=== PATIENT | female | born 1995 | race Caucasian/White ===

== ENCOUNTER → 2022-08-23 | Outpatient (CLI) | payer OTHER ==
[~2022-08-23] MED LIST: ACET325T38 PO; ACHD5005 PO; AMLO-251 PO; CEPH-507 PO; CLN.1T PO; DOCU100C37 PO; HYDR-3729 PO; IBUP-1773 PO; LABE200T10 PO; LORA1TAB59 PO; METH0.2T42 PO; METH0.2T47 PO; ONDA4TAB8 PO; PREN-142 PO; clindamycin PO
--- NOTE | 2022-08-23 23:28 | Diagnostic Imaging Report ---
INDICATION: Z33.1, anatomic survey. TECHNIQUE: Multiple real-time grayscale images were obtained over the gravid uterus. COMPARISON: None. FINDINGS: A single live intrauterine gestation is identified in a transverse presentation with head to maternal left. The placenta is anteriorly located without evidence of placenta previa. Amniotic fluid is subjectively within normal limits. The cervix appears closed. cardiac motion is documented at 155 bpm. biometrics are symmetric. They are consistent with an estimated gestational age of 20 weeks and 4 days. Findings consistent with clinical dating. Evaluation of anatomy is significantly limited secondary to lie and patient body habitus. Intracranial contents are grossly unremarkable. The kidneys and four-chamber heart and spine are not well visualized. A three-vessel cord is present. The urinary bladder is not well seen. Biometrical measurements are as follows: Biparietal 4.64 cm, age 20 weeks 1 days. Head circumference 17.77 cm, age 20 weeks 2 days. Abdominal circumference 16.17 cm, age 21 weeks 2 days. Femur length 3.33 cm, age 20 weeks 3 days. Sonographic estimate age: 20 weeks 4 days. Sonographic estimated date of delivery: 01/06/2023. Estimated Weight: 377 gm (+/- 55 gm). LMP percentile: 49%. heart rate: 155 beats per minute. number: 1 of 1. IMPRESSION: Single live intrauterine gestation in a transverse presentation with an estimated gestational age of 20 weeks and 4 days. Therefore, there is an estimated due date based upon this examination of January 06, 2023. Findings are consistent with clinical dating. Limited evaluation of anatomy, as described above. In particular, the four-chamber heart, kidneys, urinary bladder and spine are not well visualized. Dictated by: Dictated on workstation # [id number]
== END ==
LOC: RAD 14:01
PROVIDERS: ATTEND Obstetrics & Gynecology
DX: Z34.92 Encounter for supervision of normal pregnancy, unspecified, second trimester (principal); Z3A.20 20 weeks gestation of pregnancy
CPT/HCPCS: 76805

== ENCOUNTER 2022-09-21 11:53 | Outpatient (CLI) | payer OTHER ==
[~2022-09-21] VITALS: Ht 175.3 cm; Wt 107.4 kg
[2022-09-21 12:20] VITALS: BP 132/66
[2022-09-21 12:50] VITALS: BP 125/71
[2022-09-21 13:20] VITALS: BP 129/82
[2022-09-21 14:00] LABS: BILIRUBIN,URINE NEGATIVE (NEGATIVE); CLARITY,URINE CLEAR; COLOR,URINE YELLOW; GLUCOSE, URINE (UA) NEGATIVE (NEGATIVE); KETONES,URINE NEGATIVE (NEGATIVE); LEUKOCYTE ESTERASE ,URINE NEGATIVE (NEGATIVE); NITRITE,URINE NEGATIVE (NEGATIVE); PROTEIN,URINE NEGATIVE (NEGATIVE)
[2022-09-21 14:07] LABS: BACTERIA,URINE NEGATIVE /HPF; SQUAMOUS EPITHELIAL CELL,UR 0-2 /HPF; WBC,URINE RARE /HPF
[2022-09-21 14:20] VITALS: BP 112/64
[2022-09-21 14:50] VITALS: BP 120/71
--- NOTE | 2022-09-21 14:58 | OB Triage Report ---
Standard Progress Note Progress Notes/Assess & Plan Date Seen by a Provider: Sep 21, 2022 Time Seen by a Provider: 14:55 Expected Date of Delivery: Jan 07, 2023 Gestational Age in Weeks: 24 Gestational Age in Days: 6 LMP/NELLY Comment: IUP @ 24w6d Progress/Assessment & Plan This 26yo presents to L&D @ 24w6d with c/o decreased movement. She states that she has not felt baby move all afternoon FHT 155 with 10x10 accelerations TOCOs none Labs reviewed--nml Will dc to home kick counts Keep next appt. ERMELINDA HAMMONDS DO Sep 21, 2022 14:58
== END 2022-09-21 15:13 | disposition home or self-care (01) ==
LOC: LDRP 11:53 → WSo 11:53
PROVIDERS: ATTEND Obstetrics & Gynecology
DX: O36.8190 Decreased fetal movements, unspecified trimester, not applicable or unspecified (principal); Z3A.00 Weeks of gestation of pregnancy not specified
CPT/HCPCS: 81000; 87088

== ENCOUNTER 2022-11-30 22:45 | Outpatient (CLI) | payer OTHER ==
[~2022-11-30] VITALS: Ht 172.7 cm; Wt 114.6 kg
[2022-11-30 23:00] VITALS: BP 127/79
[2022-11-30 23:12] LABS: BACTERIA,URINE TRACE /HPF; BILIRUBIN,URINE NEGATIVE (NEGATIVE); CLARITY,URINE CLEAR; COLOR,URINE YELLOW; GLUCOSE, URINE (UA) NEGATIVE (NEGATIVE); KETONES,URINE NEGATIVE (NEGATIVE); LEUKOCYTE ESTERASE ,URINE TRACE (NEGATIVE); NITRITE,URINE NEGATIVE (NEGATIVE); PROTEIN,URINE NEGATIVE (NEGATIVE); WBC,URINE 0-2 /HPF
--- NOTE | 2022-12-01 07:50 | Physician Query-Final Dx ---
FEMI,12/01/22 0750: Clinic Account Progress/Dx Physician Query: Please give diagnosis Please include # weeks gestation Date of Service Nov 30, 2022 at 22:45 JOE PORTER DO 12/01/22 1239: Clinic Account Progress/Dx DIAGNOSIS: Diagnosis 30 week IUP Cramping Low abdominal pains FEMI,MarDec 01, 2022 07:50 JOE PORTER DO Dec 01, 2022 12:39
== END 2022-11-30 23:45 ==
LOC: WSo 22:45 → LDRP 22:45 → WSo 23:45
PROVIDERS: ATTEND Obstetrics & Gynecology
DX: O26.893 Other specified pregnancy related conditions, third trimester (principal); R10.9 Unspecified abdominal pain; Z3A.34 34 weeks gestation of pregnancy
CPT/HCPCS: 81000

== ENCOUNTER 2022-12-21 05:33 | Outpatient (CLI) | payer OTHER ==
[~2022-12-21] VITALS: Ht 172.7 cm; Wt 115.7 kg
[2022-12-21] MEDS ORDERED: OMEP20TA56 PO (10:15)
[2022-12-21] MEDS ORDERED: LAMO200T5 PO (10:15)
[2022-12-21] MEDS ORDERED: LORA10CA PO (10:15)
[2022-12-21] MEDS ORDERED: SIME180C65 PO (10:30)
== END 2022-12-21 10:51 | disposition home or self-care (01) ==
LOC: PREOP 05:33
PROVIDERS: ATTEND Obstetrics & Gynecology
DX: Z01.818 Encounter for other preprocedural examination (principal)

== ENCOUNTER 2022-12-29 05:36 | Inpatient (IN) | payer OTHER ==
[~2022-12-29] VITALS: Ht 172.7 cm; Wt 114.6 kg
[2022-12-29] VITALS (8 sets, daily range): BP systolic 97–142; BP diastolic 65–93
[~2022-12-29 05:36] MED LIST changes: +LAMO200T5 PO; +LORA10CA PO; +OMEP20TA56 PO; +SIME180C65 PO
--- OUTSIDE RECORDS SUMMARY | 2022-12-29 05:39 | XMS REPORT ---
Author Author [facility] ter of [facility] ter of 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 Name Role Phone CASPER ELLIS Unavailable PROBLEMS Type Condition ICD9-CM Code [id number] Code Onset Dates Condition Status W/U Status Risk SNOMED Code Notes Problem Missed period N92.6 confirmed 609905 00 Problem Borderline personality disorder F60.3 confirmed 02645552 Problem Generalized anxiety disorder F41.1 confirmed 58717150 Problem Perennial allergic rhinitis, unspecified allergic rhinitis trigger J30.89 confirmed 145665106 Problem Bipolar II disorder F31.81 confirmed 43587613 Problem Anxiety F41.9 confirmed 96472702 Problem Personality disorder F60.9 confirmed 79210280 ALLERGIES Allergen (clinical drug ingredient) Drug/Non Drug Allergy documented on EMR Reaction Allergy Type Onset Date Status Levaquin dizziness/vertig o Drug Allergy Active ENCOUNTERS from 1993 to 2022-07-05 Encounter Location Date Provider Diagnosis [facility] [address] [facility] [id number] [address] July, CASPER ELLIS Encounter for immunization Z23 IMMUNIZATIONS Vaccine Route Administration Date Status PRIVATE FLU 22-23 (FLULAVAL) AGE 6MO AND UP IM Intramuscular Dec 09, 2021 Administered 2nd Dose HRSA MODERNA, COVID -19, 0.5mL IM Intramuscular July 26, 2020 Administered 1st Dose HRSA MODERNA, COVID -19, 0.5mL IM Intramuscular June 17, 2020 Administered PRIVATE MENINGOCOCCAL (MENACTRA) Unknown June Administered PRIVATE TDAP (ADACEL) Unknown June 21, 2009 Admi nistered SOCIAL HISTORY Sex Assigned At : Social History Observation Description Sex Assigned At Unknown Alcohol Screen (Audit-C) Question Answer Notes Did you have a drink containing alcohol in the p ast year? No Points 0 Interpretation Negative REASON FOR REFERRAL No Information MEDICATIONS Medication SIG (Take, Route, Frequency, Duration) Notes Start Date End Date Status Singulair 10 MG 1 tablet Orally Once a day for 30 day(s) Active Wellbutrin XL 150 MG 1 tablet in the mor gama Orally Once a day for 30 days Active Wellbutrin XL 150 MG 1 tablet in the mor gama Orally Once a day for 30 days Active lamoTRIgine 200 MG Take 1 tablet by robe th once daily for 30 days Active hydrOXYzine Pamoate 25 MG 1 capsule Oral ly 2 times a day for 30 days PRN Active REASON FOR VISIT COVID-19 Vaccine Dose 2--vandana kurtz MEDICAL (GENERAL) HISTORY Type Description Date Medical History Perennial allergic r hinitis, unspecified allergic rhinitis trigger Medical History anxiety Medical History PCOS Medical History IBS Medical History manic episodes Medical History fibromyalgia Surgical History tonsillectomy Surgical History section Surgical History dilatation and curettage x2 Hospitalization History childbirth MENTAL STATUS No Information ASSESSMENTS Encounter Date Diagnosis Assessment Notes Treatment Notes Treatment Clinical Notes July, Encounter for immunization (ICD-10 - Z23) PLAN OF TREATMENT Medication Medication Name Sig Start Date Stop Date Wellbutrin XL 150 MG 1 tablet in the mor gama Orally Once a day for 30 days lamoTRIgine 200 MG Take 1 tablet by robe once daily for 30 days Next Appt Details Provider Name:ENRIQUE Ernst, 2022-08-11 01:00:00 PM, [address] [facility], [id number], [place], [address], Insurance Providers Payer Name Payer Address Payer Phone Insured Name Patient Relationship to Insured Coverage Start Date Coverage End Date Subscriber Number Group Number [facility] [place] [address] [address] [facility] [id number] [phone] Nickolas N[place] A Self - patient is the insured [id number]
--- OUTSIDE RECORDS SUMMARY | 2022-12-29 05:39 | XMS REPORT ---
Author Author [facility] ter of [facility] ter of [facility] Address Unknown Phone Unavailable Care Team Providers Care Turner In Name Role Phone ENRIQUE QUIÑONES Unavailable PROBLEMS Type Condition ICD9-CM Code [id number] Code Onset Dates Condition Status W/U Status Risk SNOMED Code Notes Problem Missed period N92.6 confirmed 079006 00 Problem Borderline personality disorder F60.3 confirmed 14227319 Problem Generalized anxiety disorder F41.1 confirmed 55169814 Problem Perennial allergic rhinitis, unspecified allergic rhinitis trigger J30.89 confirmed 783989668 Problem Bipolar II disorder F31.81 confirmed 74660471 Problem Anxiety F41.9 confirmed 93393770 Problem Personality disorder F60.9 confirmed 63558566 ALLERGIES Allergen (clinical drug ingredient) Drug/Non Drug Allergy documented on EMR Reaction Allergy Type Onset Date Status Levaquin dizziness/vertig o Drug Allergy Active ENCOUNTERS from 1993 to 2022-08-04 Encounter Location Date Provider Diagnosis [facility] [address] [facility] [id number], [place] [address] Jun, ENRIQUE QUIÑONES Bipolar II disorder F31.81 ; Anxiety F41.9 and Personality disorder F60.9 IMMUNIZATIONS Vaccine Route Administration Date Status PRIVATE [...] Interpretation Negative REASON FOR REFERRAL No Information VITAL SIGNS Height 68 in Jun, Weight 243.2 lbs Jun, Weight-kg 110.31 kg Jun, Temperature 97.9 degrees Fahrenheit Jun, Heart Rate 84 bpm Jun, Respiratory Rate 20 bpm Jun, BMI 36.97 kg/m2 Jun, Blood pressure systolic 122 mmHg Jun, Blood pressure diastolic 84 mmHg Jun, MEDICATIONS Medication SIG (Take, Route, Frequency, Duration) [...] by robe once daily for 30 days Active hydrOXYzine Pamoate 25 MG 1 capsule Oral ly 2 times a day for 30 days PRN Active REASON FOR VISIT Psychiatric f/u/ im waiting- [facility] MEDICAL (GENERAL) HISTORY Type Description Date Medical History Perennial allergic r hinitis, unspecified allergic rhinitis trigger Medical History anxiety Medical History PCOS Medical History IBS Medical History manic episodes Medical History fibromyalgia Surgical History tonsillectomy Surgical History section Surgical History dilatation and curettage x2 Hospitalization History childbirth MENTAL STATUS No Information ASSESSMENTS Encounter Date Diagnosis Assessment Notes Treatment Notes Treatment Clinical Notes Jun, Bipolar II disorder (ICD-10 - F31.81) Jun, Anxiety (ICD-10 - F41.9) Jun, Personality disorder (ICD-10 - F60.9) Jun, Other - +Patient is not homicidal, suicidal, nor psychotic to the point of inability to care for self. Hospitalization is not warranted nor requested by the patient at this time. Discussed office phone call procedure. Reviewed available Emergency Services. Encouraged patient to contact office with any concerns. +Patient was educated regarding the risks, benefits, and alternatives to medications including no treatment at all. Patient has given consent to pharmacological intervention. We discussed the importance of taking medication as prescribed. Discussed expected onset of action, but emphasized that effect varies depending on individual. PLAN OF TREATMENT Medication Medication Name Sig Start Date Stop Date Wellbutrin XL 150 MG 1 tablet in the mor gama Orally Once a day for 30 days lamoTRIgine 200 MG Take 1 tablet by robe th once daily for 30 days Next Appt Details 4 Weeks Reason: Provider Name:ENRIQUE Ernst, 2022-08-18 01:00:00 PM, [address] [facility], [id number], [place], [address], Insurance Providers Payer Name Payer Address Payer Phone Insured Name Patient Relationship to Insured Coverage Start Date Coverage End Date Subscriber Number Group Number [facility] [place] [address] [address] [facility] [address] Nickolas Nj A Self - patient is the insured [id number]
--- OUTSIDE RECORDS SUMMARY | 2022-12-29 05:39 | XMS REPORT ---
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 Name Role Phone ENRIQUE QUIÑONES Unavailable PROBLEMS Type Condition ICD9-CM Code FIL43-WU Code Onset Dates Condition Status W/U Status Risk SNOMED Code Notes Problem Missed period N92.6 confirmed 229386 00 Problem Borderline personality disorder F60.3 confirmed 31326049 Problem Generalized anxiety disorder F41.1 confirmed 86398363 Problem Perennial allergic rhinitis, unspecified allergic rhinitis trigger J30.89 confirmed 815465054 Problem Bipolar II disorder F31.81 confirmed 26861459 Problem Anxiety F41.9 confirmed 36138831 Problem Personality disorder F60.9 confirmed 77182120 ALLERGIES Allergen (clinical drug ingredient) Drug/Non Drug Allergy documented on EMR Reaction Allergy Type Onset Date Status Levaquin dizziness/vertig o Drug Allergy Active ENCOUNTERS from 1993 to 2022-08-04 Encounter Location Date Provider Diagnosis [facility] [address] [facility] [id number], [place] [address] Aug, ENRIQUE QUIÑONES Bipolar II disorder F31.81 ; Personality disorder F60.9 and Generalized anxiety disorder F41.1 IMMUNIZATIONS Vaccine Route Administration Date Status PRIVATE [...] No Information VITAL SIGNS Height 68 in Aug, Weight 232.9 lbs Aug, Weight-kg 105.64 kg Aug, Temperature 97.6 degrees Fahrenheit Aug, Heart Rate 81 bpm Aug, Respiratory Rate 16 bpm Aug, Oximetry 99 % Aug, BMI 35.41 kg/m2 Aug, Blood pressure systolic 122 mmHg Aug, Blood pressure diastolic 76 mmHg Aug, MEDICATIONS Medication SIG (Take, Route, Frequency, Duration) [...] 30 days PRN Active REASON FOR VISIT f/u-DERECK [facility]a MEDICAL (GENERAL) HISTORY Type Description Date Medical History Perennial allergic r hinitis, unspecified allergic rhinitis trigger Medical History anxiety Medical History PCOS Medical History IBS Medical History manic episodes Medical History fibromyalgia Surgical History tonsillectomy Surgical History section Surgical History dilatation and curettage x2 Hospitalization History childbirth MENTAL STATUS No Information ASSESSMENTS Encounter Date Diagnosis Assessment Notes Treatment Notes Treatment Clinical Notes Aug, Bipolar II disorder (ICD-10 - F31.81) Aug, Personality disorder (ICD-10 - F60.9) Aug, Generalized anxiety disorder (ICD-10 - F41.1) Aug, Other - +Patient is not homicidal, suicidal, [...] Name:ENRIQUE Ernst, 2022-08-18 01:00:00 PM, [address] [facility], [id number], [place], [address], Insurance Providers Payer Name Payer Address Payer Phone Insured Name Patient Relationship to Insured Coverage Start Date Coverage End Date Subscriber Number Group Number [facility] INS [place] [address] [address] [facility] [id number] [phone] Nickolas Nj A Self - patient is the insured [id number]
--- OUTSIDE RECORDS SUMMARY | 2022-12-29 05:39 | XMS REPORT ---
Author Author [facility] ter of [facility] ter of [facility] Address Unknown Phone Unavailable Care Team Providers Care Spear Fisher Name Role Phone ENRIQUE QUIÑONES Unavailable PROBLEMS Type Condition ICD9-CM Code PDH90-LS Code Onset Dates Condition Status W/U Status Risk SNOMED Code Notes Problem Missed period N92.6 confirmed 342995 00 Problem Borderline personality disorder F60.3 confirmed 40838263 Problem Generalized anxiety disorder F41.1 confirmed 71475325 Problem Perennial allergic rhinitis, unspecified allergic rhinitis trigger J30.89 confirmed 190984775 Problem Bipolar II disorder F31.81 confirmed 07411021 Problem Anxiety F41.9 confirmed 33466410 Problem Personality disorder F60.9 confirmed 57190649 ALLERGIES Allergen (clinical drug ingredient) Drug/Non Drug Allergy documented on EMR Reaction Allergy Type Onset Date Status Levaquin dizziness/vertig o Drug Allergy Active ENCOUNTERS from 1993 to 2022-09-25 Encounter Location Date Provider Diagnosis [facility] [address] [facility] [id number], [place] [address] Oct, ENRIQUE QUIÑONES IMMUNIZATIONS Vaccine Route Administration Date Status PRIVATE TDAP (ADACEL) Unknown June 21, 2009 Admi nistered PRIVATE MENINGOCOCCAL (MENACTRA) Unknown June Administered 1st Dose HRSA MODERNA, COVID -19, 0.5mL IM Intramuscular June 17, 2020 Administered PRIVATE FLU 22-23 (FLULAVAL) AGE 6MO AND UP IM Intramuscular Dec 09, 2021 Administered 2nd Dose HRSA MODERNA, COVID -19, 0.5mL IM Intramuscular July 26, 2020 Administered SOCIAL HISTORY Sex Assigned At : Social History Observation Description Sex Assigned At Unknown Alcohol Screen (Audit-C) Question Answer Notes Did you have a drink containing alcohol in the p ast year? No Points 0 Interpretation Negative REASON FOR REFERRAL No Information MEDICATIONS Medication SIG (Take, Route, Fr equency, Duration) Notes Start Date End Date Status 28-0.8 MG 1 tablet Orally Once a day Active LaMICtal 200 MG 1 tablet Orally Once a day for 30 days Active Omeprazole 10 MG 1 capsule 30 minutes before morning meal Orally Once a day A ctive Claritin 10 MG 1 tablet Orally Once a day Active lamoTRIgine 200 MG Take 1 tablet by robe th once daily Orally Once a day for 30 days Ac tive REASON FOR VISIT Requests return call MEDICAL (GENERAL) HISTORY Type Description Date Medical History Perennial allergic r hinitis, unspecified allergic rhinitis trigger Medical History anxiety Medical History PCOS Medical History IBS Medical History manic episodes Medical History fibromyalgia Surgical History tonsillectomy Surgical History section Surgical History dilatation and curettage x2 Hospitalization History childbirth MENTAL STATUS No Information PLAN OF TREATMENT Medication Medication Name Sig Start Date Stop Date LaMICtal 200 MG 1 tablet Orally Once a day for 30 days Next Appt Details Provider Name:ENRIQUE Ernst, 2022-11-17 11:00:00 AM, [address] [facility], [id number], [place], [address], Insurance Providers Payer Name Payer Address Payer Phone Insured Name Patient Relationship to Insured Coverage Start Date Coverage End Date Subscriber Number Group Number [facility] [place] [address] [address] [facility] [address] Nickolas Nj A Spouse - patient is the spouse of the insured [id number]
--- OUTSIDE RECORDS SUMMARY | 2022-12-29 05:39 | XMS REPORT ---
Author Author [facility] ter of [facility] ter of [facility] Address Unknown Phone Unavailable Care Team Providers Care Meal Miller Name Role Phone DALLAS ALBERT Unavailable PROBLEMS Type Condition ICD9-CM Code CZN20-UI Code Onset Dates Condition Status W/U Status Risk SNOMED Code Notes Problem Missed period N92.6 confirmed 332021 00 Problem Borderline personality disorder F60.3 confirmed 69337860 Problem Generalized anxiety disorder F41.1 confirmed 10139427 Problem Perennial allergic rhinitis, unspecified allergic rhinitis trigger J30.89 confirmed 049445107 Problem Bipolar II disorder F31.81 confirmed 39192261 Problem Anxiety F41.9 confirmed 09440846 Problem Personality disorder F60.9 confirmed 42269344 ALLERGIES Allergen (clinical drug ingredient) Drug/Non Drug Allergy documented on EMR Reaction Allergy Type Onset Date Status Levaquin dizziness/vertig o Drug Allergy Active ENCOUNTERS from 1993 to 2022-08-02 Encounter Location Date Provider Diagnosis [facility] [address] [facility] [id number], [place] [address] Aug, DALLAS ALBERT Bipolar II disorder F31.81 ; Personality disorder [...] 30 days PRN Active REASON FOR VISIT f/u MEDICAL (GENERAL) HISTORY Type Description Date Medical History Perennial allergic r hinitis, unspecified allergic rhinitis trigger Medical History anxiety Medical History PCOS Medical History IBS Medical History manic episodes Medical History fibromyalgia Surgical History tonsillectomy Surgical History section Surgical History dilatation and curettage x2 Hospitalization History childbirth MENTAL STATUS No Information ASSESSMENTS Encounter Date Diagnosis Assessment Notes Treatment Notes Treatment Clinical Notes Aug, Personality disorder (ICD-10 - F60.9) Aug, Bipolar II disorder (ICD-10 - F31.81) Aug, Generalized anxiety disorder (ICD-10 - F41.1) PLAN OF TREATMENT Medication Medication Name Sig Start Date Stop Date Wellbutrin XL 150 MG 1 tablet in the mor gama Orally Once a day for 30 days lamoTRIgine 200 MG Take 1 tablet by robe th once daily for 30 days Next Appt Details Next available Reason: Provider Name:ENRIQUE Ernst, 2022-08-18 01:00:00 PM, [address] [facility], [id number], [place], [address], Insurance Providers Payer Name Payer Address Payer Phone Insured Name Patient Relationship to Insured Coverage Start Date Coverage End Date Subscriber Number Group Number [facility] [place] [address] [address] [facility] [id number] [phone] Nickolas Nj Self - patient is the insured [phone]
--- OUTSIDE RECORDS SUMMARY | 2022-12-29 05:39 | XMS REPORT ---
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 Name Role Phone ENRIQUE QUIÑONES Unavailable PROBLEMS Type Condition ICD9-CM Code EQJ70-OP Code Onset Dates Condition Status W/U Status Risk SNOMED Code Notes Problem Missed period N92.6 confirmed 981015 00 Problem Borderline personality disorder F60.3 confirmed 95358924 Problem Generalized anxiety disorder F41.1 confirmed 37782685 Problem Perennial allergic rhinitis, unspecified allergic rhinitis trigger J30.89 confirmed 519276716 Problem Bipolar II disorder F31.81 confirmed 19555075 Problem Anxiety F41.9 confirmed 72205897 Problem Personality disorder F60.9 confirmed 59145907 ALLERGIES Allergen (clinical drug ingredient) Drug/Non Drug Allergy documented on EMR Reaction Allergy Type Onset Date Status Levaquin dizziness/vertig o Drug Allergy Active ENCOUNTERS from 1993 to 2022-08-08 Encounter Location Date Provider Diagnosis [facility] [address] [facility] [id number] [address] Jun, ENRIQUE QUIÑONES Bipolar II disorder F31.81 [...] VITAL SIGNS Height 68 in Jun, Weight 232.8 lbs Jun, Weight-kg 105.6 kg Jun, Temperature 97.9 degrees Fahrenheit Jun, Heart Rate 78 bpm Jun, Respiratory Rate 18 bpm Jun, Oximetry 98 % Jun, BMI 35.39 kg/m2 Jun, Blood pressure systolic 124 mmHg Jun, Blood pressure diastolic 76 mmHg Jun, MEDICATIONS Medication SIG (Take, Route, [...] days PRN Active REASON FOR VISIT Psychiatric f/u-DERECK Shea MEDICAL (GENERAL) HISTORY Type Description [...] Bipolar II disorder (ICD-10 - F31.81) Jun, Personality disorder (ICD-10 - F60.9) Jun, Generalized anxiety disorder (ICD-10 - F41.1) Jun, Other - +Patient is not homicidal, [...] Name:ENRIQUE Ernst, 2022-08-18 01:00:00 PM, [address] [facility], [id number], [place], [address], Insurance Providers Payer Name Payer Address Payer Phone Insured Name Patient Relationship to Insured Coverage Start Date Coverage End Date Subscriber Number Group Number [facility] [place] [address] [address] [facility] [id number] [phone] Nickolas Nj A Self - patient is the insured [id number]
--- OUTSIDE RECORDS SUMMARY | 2022-12-29 05:39 | XMS REPORT ---
Author Author [facility] ter of [facility] ter of [facility] Address Unknown Phone Unavailable Care Team Providers Care Animal Sitter Name Role Phone CASPER ELLIS Unavailable PROBLEMS Type Condition ICD9-CM Code [id number] Code Onset Dates Condition Status W/U Status Risk SNOMED Code Notes Problem Missed period N92.6 confirmed 372475 00 Problem Borderline personality disorder F60.3 confirmed 52087406 Problem Generalized anxiety disorder F41.1 confirmed 01253268 Problem Perennial allergic rhinitis, unspecified allergic rhinitis trigger J30.89 confirmed 864123817 Problem Bipolar II disorder F31.81 confirmed 02386007 Problem Anxiety F41.9 confirmed 51182382 Problem Personality disorder F60.9 confirmed 82433826 ALLERGIES Allergen (clinical drug ingredient) Drug/Non Drug Allergy documented on EMR Reaction Allergy Type Onset Date Status Levaquin dizziness/vertig o Drug Allergy Active ENCOUNTERS from 1993 to 2022-10-23 Encounter Location Date Provider Diagnosis [facility] [address] [facility] [id number] [address] Nov, CASPER ELLIS Nausea R11.0 ; Sore throat J02.9 ; Stuffy and runny nose J34.89 ; Malaise R53.81 ; Myalgia M79.10 ; Vomiting alone R11.10 and Acute nonintractable headache, unspecified headache type R51.9 IMMUNIZATIONS Vaccine Route Administration Date Status 1st Dose HRSA MODERNA, COVID -19, 0.5mL IM Intramuscular June 17, 2020 Administered PRIVATE TDAP (ADACEL) Unknown June 21, 2009 Admi nistered PRIVATE MENINGOCOCCAL (MENACTRA) Unknown June Administered 2nd Dose HRSA MODERNA, COVID -19, 0.5mL IM Intramuscular July 26, 2020 Administered PRIVATE FLU 22-23 (FLULAVAL) AGE 6MO AND UP IM Intramuscular Dec 09, 2021 Administered SOCIAL HISTORY Sex Assigned At : [...] 30 days Ac tive REASON FOR VISIT Symptomatic-Poss [facility] MEDICAL (GENERAL) HISTORY Type Description Date Medical History Perennial allergic r hinitis, unspecified allergic rhinitis trigger Medical History anxiety Medical History PCOS Medical History IBS Medical History manic episodes Medical History fibromyalgia Surgical History tonsillectomy Surgical History section Surgical History dilatation and curettage x2 Hospitalization History childbirth MENTAL STATUS No Information ASSESSMENTS Encounter Date Diagnosis Assessment Notes Treatment Notes Treatment Clinical Notes Nov, Nausea (ICD-10 - R11.0) Nov, Sore throat (ICD-10 - J02.9) Nov, Stuffy and runny nos e (ICD-10 - J34.89) Nov, Malaise (ICD-10 - R53.81) Nov, Myalgia (ICD-10 - M79.10) Nov, Vomiting alone (ICD-10 - R11.10) Nov, Acute nonintractable headache, unspecified headache type (ICD-10 - R51.9) Nov, Other Patient was instructed to self-isolate at home until further instruction from clinic staff PLAN OF TREATMENT Medication Medication Name Sig Start Date Stop Date LaMICtal 200 MG 1 tablet Orally Once a day for 30 days Next Appt Details Provider Name:ENRIQUE Ernst, 2022-11-17 11:00:00 AM, [address] [facility], [id number], [place], [address], Insurance Providers Payer Name Payer Address Payer Phone Insured Name Patient Relationship to Insured Coverage Start Date Coverage End Date Subscriber Number Group Number [facility] [address] [address] [facility] [id number] [place] Spouse - patient is the spouse of the insured [phone]
--- OUTSIDE RECORDS SUMMARY | 2022-12-29 05:39 | XMS REPORT ---
Author Author [facility] ter of [facility] ter of [facility] Address Unknown Phone Unavailable Care Team Providers Care Tanning Salon Attendant Name Role Phone ENRIQUE QUIÑONES Unavailable PROBLEMS Type Condition ICD9-CM Code [id number] Code Onset Dates Condition Status W/U Status Risk SNOMED Code Notes Problem Missed period N92.6 confirmed 083419 00 Problem Borderline personality disorder F60.3 confirmed 29462138 Problem Generalized anxiety disorder F41.1 confirmed 19631304 Problem Perennial allergic rhinitis, unspecified allergic rhinitis trigger J30.89 confirmed 293419469 Problem Bipolar II disorder F31.81 confirmed 80148625 Problem Anxiety F41.9 confirmed 23454878 Problem Personality disorder F60.9 confirmed 94438962 ALLERGIES Allergen (clinical drug ingredient) Drug/Non Drug Allergy documented on EMR Reaction Allergy Type Onset Date Status Levaquin dizziness/vertig o Drug Allergy Active ENCOUNTERS from 1993 to 2022-09-30 Encounter Location Date Provider Diagnosis [facility] [address] [facility] [id number] [address] Sep, ENRIQUE QUIÑONES IMMUNIZATIONS Vaccine Route Administration Date Status 1st Dose HRSA MODERNA, COVID -19, 0.5mL IM Intramuscular June 17, 2020 Administered 2nd Dose HRSA MODERNA, COVID -19, 0.5mL IM Intramuscular July 26, 2020 Administered PRIVATE FLU 22-23 (FLULAVAL) AGE 6MO AND UP IM Intramuscular Dec 09, 2021 Administered PRIVATE MENINGOCOCCAL (MENACTRA) Unknown June Administered [...] Name:ENRIQUE Ernst, 2022-11-17 11:00:00 AM, [address] [facility], [id number], [place], [address], Insurance Providers Payer Name Payer Address Payer Phone Insured Name Patient Relationship to Insured Coverage Start Date Coverage End Date Subscriber Number Group Number [facility] [address] [address] [facility] [address] [phone] [place] Spouse - patient is the spouse of the insured [id number]
--- OUTSIDE RECORDS SUMMARY | 2022-12-29 05:39 | XMS REPORT ---
Author Author [facility] ter of [facility] ter of [facility] Address Unknown Phone Unavailable Care Team Providers Care Director Biomedical Engineering Name Role Phone ENRIQUE QUIÑONES Unavailable PROBLEMS Type Condition ICD9-CM Code [id number] Code Onset Dates Condition Status W/U Status Risk SNOMED Code Notes Problem Missed period N92.6 confirmed 562655 00 Problem Borderline personality disorder F60.3 confirmed 82215111 Problem Generalized anxiety disorder F41.1 confirmed 29151669 Problem Perennial allergic rhinitis, unspecified allergic rhinitis trigger J30.89 confirmed 506224309 Problem Bipolar II disorder F31.81 confirmed 67841101 Problem Anxiety F41.9 confirmed 33781153 Problem Personality disorder F60.9 confirmed 92786332 ALLERGIES Allergen (clinical drug ingredient) Drug/Non Drug Allergy documented on EMR Reaction Allergy Type Onset Date Status Levaquin dizziness/vertig o Drug Allergy Active ENCOUNTERS from 1993 to 2022-08-10 Encounter Location Date Provider Diagnosis [facility] [address] [facility] [id number], [place] [address] July, ENRIQUE QUIÑONES Bipolar II disorder F31.81 ; Personality disorder F60.9 and Generalized anxiety disorder F41.1 IMMUNIZATIONS Vaccine Route Administration Date Status 1st [...] No Information VITAL SIGNS Height 68 in July, Weight 235.1 lbs July, Weight-kg 106.64 kg July, Temperature 98.8 degrees Fahrenheit July, Heart Rate 76 bpm July, Respiratory Rate 18 bpm July, BMI 35.74 kg/m2 July, Blood pressure systolic 112 mmHg July, Blood pressure diastolic 84 mmHg July, MEDICATIONS Medication SIG (Take, Route, Frequency, Duration) Notes Start Date End Date Status Wellbutrin XL 150 MG 1 tablet in the mor gama Orally Once a day for 30 days Active Wellbutrin XL 150 MG 1 tablet in the mor gama Orally Once a day for 30 days Active hydrOXYzine Pamoate 25 MG 1 capsule Oral ly 2 times a day for 30 days PRN Active Singulair 10 MG 1 tablet Orally Once a day for 30 day(s) Active lamoTRIgine 200 MG Take 1 tablet by robe th once daily Orally Once a day for 30 days Active REASON FOR VISIT Psychiatric f/u - IM WAITING ROOM [facility] MEDICAL (GENERAL) HISTORY Type Description Date Medical History Perennial allergic r hinitis, unspecified allergic rhinitis trigger Medical History anxiety Medical History PCOS Medical History IBS Medical History manic episodes Medical History fibromyalgia Surgical History tonsillectomy Surgical History section Surgical History dilatation and curettage x2 Hospitalization History childbirth MENTAL STATUS No Information ASSESSMENTS Encounter Date Diagnosis Assessment Notes Treatment Notes Treatment Clinical Notes July, Bipolar II disorder (ICD-10 - F31.81) July, Personality disorder (ICD-10 - F60.9) July, Generalized anxiety disorder (ICD-10 - F41.1) PLAN OF TREATMENT Medication Medication Name Sig Start Date Stop Date Wellbutrin XL 150 MG 1 tablet in the mor gama Orally Once a day for 30 days lamoTRIgine 200 MG Take 1 tablet by robe th once daily Orally Once a day for 30 days Next Appt Details 4 Weeks Reason: Provider Name:ENRIQUE Ernst, 2022-08-18 01:00:00 PM, [address] [facility], [id number], [place], [address], Insurance Providers Payer Name Payer Address Payer Phone Insured Name Patient Relationship to Insured Coverage Start Date Coverage End Date Subscriber Number Group Number [facility] [address] [address] [facility] [id number] [place] Self - patient is the insured [id number]
--- OUTSIDE RECORDS SUMMARY | 2022-12-29 05:39 | XMS REPORT ---
Author Author [facility] ter of [facility] ter of [facility] Address Unknown Phone Unavailable Care Team Providers Care Pediatric Assistant Name Role Phone ENRIQUE QUIÑONES Unavailable PROBLEMS Type Condition ICD9-CM Code UPU30-FF Code Onset Dates Condition Status W/U Status Risk SNOMED Code Notes Problem Missed period N92.6 confirmed 620165 00 Problem Borderline personality disorder F60.3 confirmed 77776007 Problem Generalized anxiety disorder F41.1 confirmed 26949037 Problem Perennial allergic rhinitis, unspecified allergic rhinitis trigger J30.89 confirmed 968370905 Problem Bipolar II disorder F31.81 confirmed 00065115 Problem Anxiety F41.9 confirmed 80569178 Problem Personality disorder F60.9 confirmed 11151308 ALLERGIES Allergen (clinical drug ingredient) Drug/Non Drug Allergy documented on EMR Reaction Allergy Type Onset Date Status Levaquin dizziness/vertig o Drug Allergy Active ENCOUNTERS from 1993 to 2022-07-31 Encounter Location Date Provider Diagnosis [facility] [address] [facility] [id number] [address] Aug, ENRIQUE QUIÑONES IMMUNIZATIONS Vaccine Route Administration Date [...] 30 days PRN Active REASON FOR VISIT medication MEDICAL (GENERAL) HISTORY Type Description Date Medical [...] days Next Appt Details Provider Name:ENRIQUE Ernst, 2022-08-18 01:00:00 PM, [address] [facility], [id number], [place], [address], Insurance Providers Payer Name Payer Address Payer Phone Insured Name Patient Relationship to Insured Coverage Start Date Coverage End Date Subscriber Number Group Number [facility] [address] [address] [facility] [id number] [place] Self - patient is the insured [id number]
[2022-12-29] MEDS ORDERED: LACTATED RINGERS 1,000 ML 1,000 ML IV SCH ×2 (05:45)
[2022-12-29] MEDS ORDERED: METOCLOPRAMIDE INJ 10 MG/2 ML IV ONE (05:45)
[2022-12-29] MEDS ORDERED: FAMOTIDINE INJ 20MG/2ML VIAL IV ONE (05:45)
[2022-12-29] MEDS ORDERED: ceFAZolin INJECTION 2,000 MG in NS (IVPB) 50 ML 50 ML IV ONE (05:45)
[2022-12-29] MEDS ORDERED: CITRIC ACID/SODIUM CITRATE ORAL SOLN 30 ML PO ONE (05:45)
[2022-12-29] MEDS ORDERED: ceFAZolin INJECTION 2,000 MG ONE (06:04)
[2022-12-29] MEDS ORDERED: NS (IVPB) 50 ML 50 ML ONE (06:04)
[2022-12-29 06:08] LABS: BASOPHILS % (AUTO) 0 % (0-10); EOSINOPHILS % (AUTO) 0 % (0-10); HEMATOCRIT 32 % (35-52); HEMOGLOBIN 10.1 g/dL (11.5-16.0); LYMPHOCYTES # (AUTO) 2.3 10^3/uL (1.0-4.0); LYMPHOCYTES % (AUTO) 24 % (12-44); MEAN CORPUSCULAR HEMOGLOBIN 25 pg (25-34); MEAN CORPUSCULAR HGB CONC 32 g/dL (32-36); MEAN CORPUSCULAR VOLUME 80 fL (80-99); MEAN PLATELET VOLUME 10.9 fL (9.0-12.2); MONOCYTES # (AUTO) 0.7 10^3/uL (0.0-1.0); MONOCYTES % (AUTO) 8 % (0-12); NEUTROPHILS # (AUTO) 6.7 10^3/uL (1.8-7.8); NEUTROPHILS % (AUTO) 68 % (42-75); PLATELET COUNT 209 10^3/uL (130-400); WHITE BLOOD COUNT 9.8 10^3/uL (4.3-11.0)
[2022-12-29 06:16] LABS: POTASSIUM 3.5 MMOL/L (3.6-5.0)
[2022-12-29 06:18] LABS: CALCIUM 8.8 MG/DL (8.5-10.1)
[2022-12-29 06:22] LABS: CREATININE SERUM 0.61 MG/DL (0.60-1.30)
[2022-12-29] MEDS ORDERED: fentaNYL INJECTION 100 MCG/2 ML VIAL ONE (06:59)
[2022-12-29] MEDS ORDERED: OXYTOCIN DRIP PRE-MIX 1,000 ML IV ONE (06:59)
[2022-12-29] MEDS ORDERED: BUPIVACAINE 0.5% 30 ML VIAL ONE (06:59)
--- NOTE | 2022-12-29 07:18 | History & Physical-OB ---
OB - Chief Complaint & HPI Date/Time Date of Admission: Date of Admission: Dec 29, 2022 at 05:36 Date seen by a Provider: Dec 29, 2022 Time Seen by a Provider: 07:05 Chief Complaint/History OB-Reason for Admission/Chief: Section Hx : 3 Hx Para: 1 Expected Date of Delivery: Jan 05, 2023 Gestational Age in Weeks: 39 Gestational Age in Days: 0 Indication for : desires repeat Admission Nurse Assessment Rev: Yes History of Labs O pos Antibody neg RNI RPR NR HBsAg NR HIV NR GC neg GBS neg Allergies and Home Medications Allergies Coded Allergies: No Known Drug Allergies (Unverified , 12/21/22) Patient Home Medication List Home Medication List Reviewed: Yes Lamotrigine (Lamotrigine) 200 Mg Tablet, 200 MG PO DAILY, (Reported) Entered as Reported by: Lali De La Cruz on 12/21/22 1015 Last Action: Reviewed Loratadine (Claritin) 10 Mg Capsule, 10 MG PO DAILY, (Reported) Entered as Reported by: Lali De La Cruz on 12/21/22 1015 Last Action: Reviewed Omeprazole (Omeprazole) 20 Mg Tablet.dr, 20 MG PO BID, (Reported) Entered as Reported by: Lali De La Cruz on 12/21/22 1015 Last Action: Reviewed Vit No.124/Iron/FA ( Vitamin Tablet) 1 Each Tablet, 1 EACH PO DAILY, (Reported) Entered as Reported by: JUAN R LAUREANO on 12/11/16 2353 Last Action: Reviewed Simethicone (Simethicone) 180 Mg Capsule, 180 MG PO NEEDED, (Reported) Entered as Reported by: Lali De La Cruz on 12/21/22 1030 Last Action: Reviewed OB - History Hx of Present Care: Yes Ultrasounds: Normal mid trimester US Obstetrical Complications: None Medical Complications: None Delivery History Hx Blood Disorders: No Adverse Rxn to Tranfusion: No Patient Past Medical History BMI > 30 Social History/Family History 2nd Hand Smoke Exposure: No Immunizations Influenza Vaccine Up-to-Date: Yes; Up-to-Date Hepatitis A: Yes Hepatitis B: Yes Tetanus Booster (TDap): Less than 5yrs OB - Admission Exam Physical Exam Vitals: Vital Signs 12/29/22 06:00 Temp 36.1 Pulse 98 Resp 18 Pulse Ox 98 O2 Delivery Room Air HEENT: NCAT Heart: Rhythm Normal Lungs: Clear Abdomen: Gravid Extremities: Normal Reflexes: Normal Heart Rate: 130's Accelerations: Accelerations Present Decelerations: No Decelerations Short Term Variability: Present Valve Steamer Variability: Average (6-25) Contractions on Admission: >10 Minutes Apart Intensity: Mild Labs Laboratory Tests Test 12/29/22 05:55 Range/Units White Blood Count 9.8 4.3-11.0 10^3/uL Red Blood Count 3.98 3.80-5.11 10^6/uL Hemoglobin 10.1 L 11.5-16.0 g/dL Hematocrit 32 L 35-52 % Mean Corpuscular Volume 80 80-99 fL Mean Corpuscular Hemoglobin 25 25-34 pg Mean Corpuscular Hemoglobin Concent 32 32-36 g/dL Red Cell Distribution Width 13.3 10.0-14.5 % Platelet Count 209 130-400 10^3/uL Mean Platelet Volume 10.9 9.0-12.2 fL Immature Granulocyte % (Auto) 0 % Neutrophils (%) (Auto) 68 42-75 % Lymphocytes (%) (Auto) 24 12-44 % Monocytes (%) (Auto) 8 0-12 % Eosinophils (%) (Auto) 0 0-10 % Basophils (%) (Auto) 0 0-10 % Neutrophils # (Auto) 6.7 1.8-7.8 10^3/uL Lymphocytes # (Auto) 2.3 1.0-4.0 10^3/uL Monocytes # (Auto) 0.7 0.0-1.0 10^3/uL Eosinophils # (Auto) 0.0 0.0-0.3 10^3/uL Basophils # (Auto) 0.0 0.0-0.1 10^3/uL Immature Granulocyte # (Auto) 0.0 0.0-0.1 10^3/uL Sodium Level 137 135-145 MMOL/L Potassium Level 3.5 L 3.6-5.0 MMOL/L Chloride Level 109 H 98-107 MMOL/L Carbon Dioxide Level 19 L 21-32 MMOL/L Anion Gap 9 5-14 MMOL/L Blood Urea Nitrogen 7 7-18 MG/DL Creatinine 0.61 0.60-1.30 MG/DL Estimat Glomerular Filtration Rate 124 BUN/Creatinine Ratio 11 Glucose Level 89 70-105 MG/DL Calcium Level 8.8 8.5-10.1 MG/DL OB - Assessment/Plan/Diagnosis Assessment Assessment: section Admission Dx 27 yo @ 39 weeks Previous GBS neg Admission Status: Inpatient Order (span 2 midnights) Reason for Inpatient Admission: Repeat at 39 weeks Plan Plan: Section JOE PORTER DO Dec 29, 2022 07:18
--- NOTE | 2022-12-29 07:21 | Discharge Inst-Women's Service ---
Discharge Inst-Women's Serv Depart Medication/Instructions New, Converted or Re-Newed RX: Transmitted to Pharmacy Final Diagnosis POD 2 RLTCS Problems Reviewed?: Yes Consults/Follow Up Additional Follow Up: Yes Orders/Referrals Dr. Rivas in 7-10 days and in 6 weeks Activity Activity: Activity as Tolerated Driving Instructions: No Driving for 1 Week NO SMOKING: NO SMOKING Nothing Inside Vagina: No Douching, No Motley, No Tampons Diet Discharge Diet: No Restrictions Symptoms to Report to : Bleeding Excessive, Pain Increased, Fever Over 101 Degrees F, Vaginal Bleeding Increase, Questions/Concerns For Any Problems or Questions: Contact Your Physician Skin/Wound Care Infection Signs and Symptoms: Increased Redness, Foul Odor of Wound, Increased Drainage, Skin Itchy or Has a Rash, Increased Swelling, Temperature Above 101 F Operative Area Clean and Dry: Keep Incision Clean/Dry Stitches/[place]or[place]/Dermabond: Dermabond, Care of Stitches Bathing Instructions: JOE Leary DO Dec 29, 2022 07:21
[2022-12-29] MEDS ORDERED: ACHD5005 PO (07:26)
[2022-12-29] MEDS ORDERED: IBUP-844 PO (07:26)
[2022-12-29] MEDS ORDERED: DOCU100C37 PO (07:26)
[2022-12-29] MEDS ORDERED: Tetanus/Diphtheria/Pertussis (Acell) ADULT Vaccine 0.5 ML IM SCH (07:30)
[2022-12-29] MEDS ORDERED: NALOXONE 0.4 MG/ML 1 ML VIAL IV PRN (07:30)
[2022-12-29] MEDS ORDERED: MEASLES, MUMPS, RUBELLA VACCINE (MMR) SC SCH (07:30)
[2022-12-29] MEDS ORDERED: ONDANSETRON INJECTION 4 MG/2 ML (SDV) IVP PRN (07:30)
[2022-12-29] MEDS ORDERED: ONDANSETRON INJECTION 4 MG/2 ML (SDV) ONE (07:52)
[2022-12-29] MEDS ORDERED: PHENYLEPHRINE 100 MCG/ML 10 ML (ANESTHESIA) SYR ONE (08:37)
[2022-12-29] MEDS: OXYTOCIN DRIP PRE-MIX 500 ML IV SCH ×2 (09:01→13:15)
[2022-12-29] MEDS: KETOROLAC INJ 30 MG/ML VIAL IV SCH ×3 (09:01→21:17)
[2022-12-29] MEDS: DOCUSATE SODIUM 100 MG CAPSULE PO SCH ×2 (09:04→21:17)
[2022-12-29] MEDS: HYDROcodone/ACETAMINOPHEN 5 MG/325 MG TABLET PO PRN ×3 (11:23→19:33)
[2022-12-29] MEDS ORDERED: CATHETER FLUSH 10 ML SYR IV SCH (14:00)
--- NOTE | 2022-12-29 14:38 | OPERATIVE REPORT ---
PREOPERATIVE DIAGNOSES: 1. A 27-year-old at 39 weeks' gestation. 2. Previous section. POSTOPERATIVE DIAGNOSES: 1. A 27-year-old at 39 weeks' gestation. 2. Previous section. PROCEDURE: Repeat low transverse section. SURGEON: Herbert Rivas DO ANESTHESIA: Spinal. ESTIMATED BLOOD LOSS: 500 mL URINE OUTPUT: 175 mL FLUIDS: 2100 mL lactated Ringer's solution. FINDINGS: A live female infant, weighing 7 pounds 13 ounces, Apgars of 8 and 9. Grossly normal appearing uterus, bilateral fallopian tubes and ovaries. SPECIMEN SENT: None. INDICATIONS FOR PROCEDURE: This 27-year-old female was patient who sought care in my office, it was uncomplicated with exception of need for repeat . The patient desired a repeat . Risk of that versus trial of labor after was reviewed and the patient wished to proceed with repeat . After all of her questions were answered in the preoperative area, consent was obtained, the patient was taken to the operating room. OPERATIVE REPORT IN DETAIL: Once in the operating room, spinal analgesia was found to be adequate, was placed in supine position with leftward tilt, prepped and draped in normal sterile fashion. A timeout was performed. Anesthesia was tested. I then make a Pfannenstiel skin incision through previous existing scar using knife and carried underlying fascia using Bovie cautery. The fascial incision was extended laterally using Bovie cautery. Superior aspect of fascial incision was then grasped with Liliana clamps, tented up and dissected off the underlying rectus muscles. The inferior aspect of the fascial incision was then grasped with Liliana clamps, tented up and dissected off the underlying rectus muscles. The rectus muscles were dissected down the midline, which exposed the peritoneum, which I entered bluntly and extended using blunt traction. Robert ring retractor was placed in the peritoneal incision, which offers excellent lateral sidewall retraction. I identified lower uterine segment was found to be thinned out and make a low transverse incision to the vesicouterine peritoneum and bluntly dissected off the lower uterine segment, creating a bladder flap. I then proceeded my myotomy until membranes were visualized, at which point I extended the uterine incision laterally and superiorly using bandage scissors. Amniotomy was performed in the process of doing this, clear fluid was noted. It was found in vertex presentation. With gentle fundal pressure, the 's head elevated up to the incision. There is difficulty delivering the head through the incision; therefore, I placed a Kiwi vacuum extractor on the flexion point and 500 mmHg pressure was applied using the suction handpiece and I am able to deliver the head through the incision where the vacuum was released. Anterior and posterior shoulders were delivered. was brought to the operative field where cords were clamped and cut and infant was handed off to waiting nurses in attendance. Cord blood was collected. Three-vessel cord intact placenta was delivered spontaneously thereafter. IV Pitocin was initiated to facilitate uterine traction. Uterine fundus was firm with bimanual massage. The uterus was exteriorized and cleared endometrial clots and debris. I then proceeded with closing the uterine incision using 0 Vicryl suture in a running locked fashion. Second layer of imbricating 0 Monocryl was placed. Excellent hemostasis was noted after doing this, then placed the uterus back in pelvis and copiously irrigated the pelvis using normal saline. Once the end of active bleeding noted from any of my dissection planes, I placed Interceed antiadhesive over my low transverse incision. I removed the Robert ring retractor and then proceeded with closing the peritoneum and rectus muscles in one layer using 3-0 Vicryl suture in interrupted fashion. The fascia was reapproximated using 0 Vicryl suture in a running fashion. The subcutaneous tissue was reapproximated using 3-0 plain interrupted subcutaneous stitch and skin reapproximated using 4-0 Monocryl running subcuticular. Dermabond was applied. Incision, sterile dressing with adhesive white tape. The patient tolerated the procedure well and sent to recovery area in stable condition. Lap and sponge counts were correct at the end of the procedure. Instrument counts correct as well. Two grams of Ancef were given preoperatively for infection prophylaxis. Job ID: [id number] DocumentID: [id number] Dictated Date: 12/29/2022 08:06:31 Arm Maker Date: 12/29/2022 14:35:00 Dictated By: DO JENNIFFER ESPINOZA
[2022-12-30 00:30] VITALS: BP 111/67
[2022-12-30] MEDS: HYDROcodone/ACETAMINOPHEN 5 MG/325 MG TABLET PO PRN ×4 (01:23→20:06)
[2022-12-30] MEDS: KETOROLAC INJ 30 MG/ML VIAL IV SCH (03:16)
[2022-12-30 05:41] LABS: BASOPHILS % (AUTO) 0 % (0-10); EOSINOPHILS # (AUTO) 0.1 10^3/uL (0.0-0.3); EOSINOPHILS % (AUTO) 1 % (0-10); HEMATOCRIT 33 % (35-52); HEMOGLOBIN 10.1 g/dL (11.5-16.0); LYMPHOCYTES # (AUTO) 1.5 10^3/uL (1.0-4.0); LYMPHOCYTES % (AUTO) 16 % (12-44); MEAN CORPUSCULAR HEMOGLOBIN 26 pg (25-34); MEAN CORPUSCULAR HGB CONC 31 g/dL (32-36); MEAN CORPUSCULAR VOLUME 82 fL (80-99); MEAN PLATELET VOLUME 10.9 fL (9.0-12.2); MONOCYTES # (AUTO) 0.8 10^3/uL (0.0-1.0); MONOCYTES % (AUTO) 8 % (0-12); NEUTROPHILS % (AUTO) 74 % (42-75); PLATELET COUNT 168 10^3/uL (130-400); WHITE BLOOD COUNT 9.4 10^3/uL (4.3-11.0)
[2022-12-30 06:18] VITALS: BP 108/68
[2022-12-30] MEDS: DOCUSATE SODIUM 100 MG CAPSULE PO SCH ×2 (08:16→20:04)
[2022-12-30] MEDS: IBUPROFEN 600 MG TABLET PO SCH ×3 (08:16→20:04)
[2022-12-30 08:20] VITALS: BP 117/70
--- NOTE | 2022-12-30 08:46 | Anesthesia-Regional Post-Op ---
Regional Patient Condition Mental Status: Alert, Oriented x3 Circulation: Same as Pre-Op Headache: Absent Sensation: Full Recovery Motor Block: Absent Post Op Complications Complications None Follow Up Care/Instructions Patient Instructions None needed. Anesthesia/Patient Condition Patient is doing well, no complaints, stable vital signs, no apparent adverse anesthesia problems. No complications reported per nursing. ANA BRADFORD CRNA Dec 30, 2022 08:46
--- NOTE | 2022-12-30 09:26 | Postpartum Progress Note ---
Note Note Day # 1 Subjective: Patient is without complaints. Ambulating, voiding. Tolerating a regular diet without nausea or vomiting. Normal lochia. Pain is well controlled with oral pain medications. Objective: Physical Exam: General - Alert and oriented, no apparent distress Abdomen - Soft, appropriately tender to palpation, non-distended, fundus firm at umbilicus Extremities - no edema, negative Jerman's bilaterally Assessment: POD 1 RLTCS Acute blood loss anemia Plan: Routine care. Encourage breast feeding. Encourage ambulation. Ferrous sulfate supplementation. Plan for discharge tomorrow Vitals - Labs Vital Signs - I&O Vital Signs Date Time Temp Pulse Resp B/P (MAP) Pulse Ox O2 Delivery O2 Flow Rate FiO2 12/30/22 08:20 36.6 88 18 117/70 (86) 100 Room Air 12/30/22 06:18 36.1 94 18 108/68 (81) 99 Room Air 12/30/22 00:30 36.1 89 18 111/67 (82) 99 Room Air 12/29/22 19:33 36.3 90 18 142/65 (90) 98 Room Air 12/29/22 16:45 36.6 85 18 124/77 (93) Room Air 12/29/22 12:00 36.6 93 18 109/70 (83) 100 Room Air I & O 12/30/22 07:00 Intake Total 2050 ml Output Total 2175 ml Balance -125 ml Labs Laboratory Tests 12/30/22 05:21: White Blood Count 9.4, Red Blood Count 3.96, Hemoglobin 10.1L, Hematocrit 33L, Mean Corpuscular Volume 82, Mean Corpuscular Hemoglobin 26, Mean Corpuscular Hem oglobin Concent 31L, Red Cell Distribution Width 13.5, Platelet Count 168, Mean Platelet Volume 10.9, Immature Granulocyte % (Auto) 0, Neutrophils (%) (Auto) 74, Lymphocytes (%) (Auto) 16, Monocytes (%) (Auto) 8, Eosinophils (%) (Auto) 1, Basophils (%) (Auto) 0, Neutrophils # (Auto) 7.0, Lymphocytes # (Auto) 1.5, Monocytes # (Auto) 0.8, Eosinophils # (Auto) 0.1, Basophils # (Auto) 0.0, Immature Granulocyte # (Auto) 0.0 JOE PORTER 21, 2023 09:26
[2022-12-30 12:30] VITALS: BP 123/74
[2022-12-30] MEDS ORDERED: diphenhydrAMINE 25 MG TABLET PO ONE (14:30)
[2022-12-30 18:49] VITALS: BP 129/71
[2022-12-30 20:00] VITALS: BP 119/70
[2022-12-31 02:00] VITALS: BP 105/62
[2022-12-31] MEDS: IBUPROFEN 600 MG TABLET PO SCH ×4 (02:00→19:12)
[2022-12-31] MEDS: HYDROcodone/ACETAMINOPHEN 5 MG/325 MG TABLET PO PRN ×4 (02:00→19:12)
[2022-12-31] MEDS: DOCUSATE SODIUM 100 MG CAPSULE PO SCH (08:12)
[2022-12-31 08:13] VITALS: BP 106/70
--- NOTE | 2022-12-31 09:06 | Postpartum Progress Note ---
Note Note Day # 2 Subjective: Patient is without complaints. Ambulating, voiding. Tolerating a regular diet without nausea or vomiting. Normal lochia. Pain is well controlled with oral pain medications. Objective: Physical Exam: General - Alert and oriented, no apparent distress Abdomen - Soft, appropriately tender to palpation, non-distended, fundus firm at umbilicus Extremities - no edema, negative Jerman's bilaterally Incision- c/d/i Assessment: POD 2 RLTCS Acute blood loss anemia Plan: Routine care. Encourage breast feeding. Encourage ambulation. Ferrous sulfate supplementation. Plan for discharge today Vitals - Labs Vital Signs - I&O Vital Signs Date Time Temp Pulse Resp B/P (MAP) Pulse Ox O2 Delivery O2 Flow Rate FiO2 12/31/22 08:13 36.2 89 18 106/70 (82) Room Air 12/31/22 02:00 36.4 89 18 105/62 (76) 99 Room Air 12/30/22 20:00 36.2 91 18 119/70 (86) 99 Room Air 12/30/22 18:49 36.6 80 18 129/71 (90) 100 Room Air 12/30/22 12:30 36.5 83 18 123/74 (90) 100 Room Air CHARLOTTEJOE Paz DO Dec 31, 2022 09:06
[2022-12-31 14:10] VITALS: BP 122/71
== END 2022-12-31 19:15 | disposition home or self-care (01) | DRG 787 ==
LOC: LDRP 05:36
PROVIDERS: ADMIT Obstetrics & Gynecology; ATTEND Obstetrics & Gynecology
PROC: 10D00Z1 Extraction of Products of Conception, Low, Open Approach (ICD-10-PCS; principal; 2022-12-29 07:18)
DX: O34.211 Maternal care for low transverse scar from previous cesarean delivery (principal); D62 Acute posthemorrhagic anemia; Z3A.39 39 weeks gestation of pregnancy; Z37.0 Single live birth; O90.81 Anemia of the puerperium
CPT/HCPCS: 36415; 80048; 85025; 86850; 86900; 86901; 94664

== ENCOUNTER 2023-02-18 21:30 | Emergency (ER) | payer OTHER ==
[~2023-02-18 21:30] MED LIST changes: +IBUP-844 PO
--- NOTE | 2023-02-18 21:58 | ED General ---
General Chief Complaint: Fever-Adult/Adol Stated Complaint: HIGH FEVER/MUSCLE PAIN Nursing Triage Note: TO ED VIA POV AND AMBULATORY TO ROOM 5 WITH C/O FEVER, BODY ACHES, LOWER BACK PAIN, AND COUGH THAT STARTED LAST SUNDAY. PT STATES SHE WENT TO [facility] TODAY AND WAS NEGATIVE FOR FLU AND COVID. STATES SHE WAS TOLD SHE DIDN'T HAVE A UTI, BUT HAD "BLOOD IN URINE". Source of Information: Patient Exam Limitations: No Limitations History of Present Illness Date Seen by Provider: Feb 18, 2023 Time Seen by Provider: 21:45 Initial Comments Patient is a 27-year-old female 7 weeks who presents to the emergency room with fever, body aches, low back pain for the last 2 to 3 days. She has b een alternating Tylenol and ibuprofen for her symptoms but has not gotten any better. She has a greenish productive cough. She was seen at [facility] clinic earlier today, tested for COVID and flu and it was reportedly negative. She also had her urine tested and was told she did not have a urinary tract infection. She denies any diarrhea but she has been nauseated. No sore throat or earache. No significant congestion. No other sick contacts in the home. Timing/Duration: 2-3 Days Severity: Moderate Associated Systoms: Cough, Diaphoresis, Fever/Chills, Headaches, Malaise, Nausea/Vomiting Allergies and Home Medications Allergies Coded Allergies: No Known Drug Allergies (Unverified , 12/21/22) Patient Home Medication List Home Medication List Reviewed: Yes Cefdinir (Cefdinir) 300 Mg Capsule, 300 MG PO BID Prescribed by: RANDA KAUR on 02/18/23 7353 Docusate Sodium (Docusate Sodium) 100 Mg Capsule, 100 MG PO BID PRN for CONSTIP ATION-1ST LINE Prescribed by: JOE PORTER on 12/29/22 0794 Hydrocodone/Acetaminophen (Hydrocodone-Acetamin 5-325 mg) 5 Mg-325 Mg Tablet, 1- 2 EA PO Q6HR PRN for PAIN-MODERATE (5-7) Prescribed by: JOE PORTER on 12/29/22 07 Ibuprofen (Ibu) 600 Mg Tablet, 600 MG PO Q6H Prescribed by: JOE PORTER on 12/29/22 07 Lamotrigine (Lamotrigine) 200 Mg Tablet, 200 MG PO DAILY, (Reported) Entered as Reported by: Lali De La Cruz on 12/21/22 1015 Loratadine (Claritin) 10 Mg Capsule, 10 MG PO DAILY, (Reported) Entered as Reported by: Lali De La Cruz on 12/21/22 1015 Omeprazole (Omeprazole) 20 Mg Tablet.dr, 20 MG PO BID, (Reported) Entered as Reported by: Lali De La Cruz on 12/21/22 1015 Vit No.124/Iron/FA ( Vitamin Tablet) 1 Each Tablet, 1 EACH PO DAILY, (Reported) Entered as Reported by: JUAN R LAUREANO on 12/11/16 5108 Review of Systems Review of Systems Constitutional: see HPI, fever Respiratory: cough, phlegm (greenish) Cardiovascular: no symptoms reported Gastrointestinal: nausea Genitourinary: no symptoms reported Musculoskeletal: muscle pain, neck pain, other (left flank pain) Skin: no symptoms reported Psychiatric/Neurological: Headache All Other Systems Reviewed Negative Unless Noted: Yes Past Grpmgay-Fjjzfb-Gbwicl Hx Patient Social History Tobacco Use?: No Substance use?: No Alcohol Use?: No Immunizations Up To Date Tetanus Booster (TDap): Less than 5yrs PED Vaccines UTD: Yes Influenza Vaccine Up-to-Date: Yes; Up-to-Date Seasonal Allergies Seasonal Allergies: Yes Past Medical History Surgeries: No Adenoidectomy, Section, Tonsillectomy Respiratory: No Currently Using CPAP: No Currently Using BIPAP: No Cardiac: No Neurological: Yes Headaches /Migraines Reproductive Disorders: No Female Reproductive Disorders: Denies Sexually Transmitted Disease: No HIV/AIDS: No Genitourinary: No Gastrointestinal: Yes Gastroesophageal Reflux, Hiatal Hernia Musculoskeletal: Yes Fibromyalgia Endocrine: No HEENT: No Loss of Vision: Denies Hearing Impairment: Denies Cancer: No Psychosocial: Yes Anxiety, Bipolar Integumentary: No Blood Disorders: No Adverse Reaction/Blood Tranf: No Family Medical History No Pertinent Family Hx Physical Exam Vital Signs Vital Signs - First Documented 02/18/23 21:44 Temp 38.1 Pulse 130 Resp 16 B/P (MAP) 142/93 (109) Pulse Ox 97 O2 Delivery Room Air Capillary Refill : Less Than 3 Seconds Height, Weight, BMI Height: 5'9.00" Weight: 244lbs. 0.0oz. [id number]; 38.42 BMI Method:Actual General Appearance: No Apparent Distress, WD/WN, Obese Eyes: Bilateral Eye Normal Inspection, Bilateral Eye PERRL, Bilateral Eye EOMI HEENT: PERRL/EOMI, TMs Normal, Normal ENT Inspection, Pharynx Normal, Moist Mucous Membranes Neck: Normal Inspection, Supple Respiratory: Lungs Clear, Normal Breath Sounds, No Accessory Muscle Use, No Respiratory Distress Cardiovascular: Regular Rate, Rhythm, Normal Peripheral Pulses, Tachycardia (135) Gastrointestinal: Non Tender, Soft Back: Normal Inspection, No CVA Tenderness Extremity: Normal Capillary Refill, Normal Inspection, Normal Range of Motion, Non Tender, No Calf Tenderness, No Pedal Edema Neurologic/Psychiatric: Alert, Oriented x3, No Motor/Sensory Deficits, Normal Mood/Affect, obgyn specialist II-XII Norm as Tested Skin: Normal Color, Warm/Dry Progress/Results/Core Measures Suspected Sepsis SIRS Temperature: Pulse: 130 Respiratory Rate: 16 Laboratory Tests 02/18/23 22:13: White Blood Count 7.2 Blood Pressure 142 /93 Mean: 109 Laboratory Tests 02/18/23 22:13: Creatinine 0.73, Platelet Count 242, Total Bilirubin 0.4 Results/Orders Lab Results Laboratory Tests Test 02/18/23 22:07 02/18/23 22:13 02/18/23 22:22 Range/Units Influenza Type A (RT-PCR) Not Detected Not Detecte Influenza Type B (RT-PCR) Not Detected Not Detecte SARS-CoV-2 RNA (RT-PCR) Not Detected Not Detecte White Blood Count 7.2 4.3-11.0 10^3/uL Red Blood Count 4.44 3.80-5.11 10^6/uL Hemoglobin 11.0 L 11.5-16.0 g/dL Hematocrit 35 35-52 % Mean Corpuscular Volume 79 L 80-99 fL Mean Corpuscular Hemoglobin 25 25-34 pg Mean Corpuscular Hemoglobin Concent 31 L 32-36 g/dL Red Cell Distribution Width 15.4 H 10.0-14.5 % Platelet Count 242 130-400 10^3/uL Mean Platelet Volume 9.3 9.0-12.2 fL Immature Granulocyte % (Auto) 0 % Neutrophils (%) (Auto) 64 42-75 % Lymphocytes (%) (Auto) 21 12-44 % Monocytes (%) (Auto) 14 H 0-12 % Eosinophils (%) (Auto) 0 0-10 % Basophils (%) (Auto) 0 0-10 % Neutrophils # (Auto) 4.6 1.8-7.8 10^3/uL Lymphocytes # (Auto) 1.5 1.0-4.0 10^3/uL Monocytes # (Auto) 1.0 0.0-1.0 10^3/uL Eosinophils # (Auto) 0.0 0.0-0.3 10^3/uL Basophils # (Auto) 0.0 0.0-0.1 10^3/uL Immature Granulocyte # (Auto) 0.0 0.0-0.1 10^3/uL Sodium Level 138 135-145 MMOL/L Potassium Level 3.7 3.6-5.0 MMOL/L Chloride Level 108 H 98-107 MMOL/L Carbon Dioxide Level 19 L 21-32 MMOL/L Anion Gap 11 5-14 MMOL/L Blood Urea Nitrogen 9 7-18 MG/DL Creatinine 0.73 0.60-1.30 MG/DL Estimat Glomerular Filtration Rate 114 BUN/Creatinine Ratio 12 Glucose Level 104 70-105 MG/DL Calcium Level 8.9 8.5-10.1 MG/DL Corrected Calcium 9.0 8.5-10.1 MG/DL Total Bilirubin 0.4 0.1-1.0 MG/DL Aspartate Amino Transf (AST/SGOT) 24 5-34 U/L Alanine Aminotransferase (ALT/SGPT) 29 0-55 U/L Alkaline Phosphatase 85 40-136 U/L Total Protein 6.9 6.4-8.2 GM/DL Albumin 3.9 3.2-4.5 GM/DL Urine Color YELLOW Urine Clarity CLEAR Urine pH 7.0 5-9 Urine Specific [facility] 1.010 L 1.016-1.022 Urine Protein NEGATIVE NEGATIVE Urine Glucose (UA) NEGATIVE NEGATIVE Urine Ketones NEGATIVE NEGATIVE Urine Nitrite NEGATIVE NEGATIVE Urine Bilirubin NEGATIVE NEGATIVE Urine Urobilinogen 0.2 < = 1.0 MG/DL Urine Leukocyte Esterase NEGATIVE NEGATIVE Urine RBC (Auto) TRACE H NEGATIVE Urine RBC RARE /HPF Urine WBC NONE /HPF Urine Squamous Epithelial Cells 5-10 /HPF Urine Crystals NONE /LPF Urine Bacteria TRACE /HPF Urine Casts NONE /LPF Urine Mucus NEGATIVE /LPF Urine Culture Indicated NO My Orders Orders - RANDA KAUR MD Ed Iv/Invasive Line Start (02/18/23 22:03) Cbc And Automated Diff (02/18/23 22:03) Comprehensive Metabolic Panel (02/18/23 22:) Ua Culture If Indicated (02/18/23 22:03) Covid 19 Inhouse Test (02/18/23 22:03) Influenza A And B By Pcr (02/18/23 22:03) Chest 1 View, Ap/Pa Only (02/18/23 22:03) Lactated Ringers 1,000 Ml (Lactated Ring (02/18/23 23:00) Ct Abd/Pelvis Wo(Kidney Stone) (02/18/23 23:12) Ceftriaxone Iv/Im (Ceftriaxone Iv/Im) (02/19/23 00:00) Medications Given in ED Current Medications Medications Dose Ordered Sig/José Manuel Route Start Time Stop Time Status Last Admin Dose Admin Ceftriaxone Sodium 1000 mg/ Sodium Chloride 50 ml @ 100 mls/hr ONCE ONCE IV 02/19/23 00:00 02/19/23 00:25 DC 02/18/23 23:59 100 MLS/HR Vital Signs/I&O 02/18/23 02/18/23 02/19/23 21:44 21:44 00:25 Temp 38.1 Pulse 130 100 Resp 16 16 B/P (MAP) 142/93 (109) 111/62 Pulse Ox 97 97 O2 Delivery Room Air Room Air Room Air Capillary Refill : Less Than 3 Seconds Blood Pressure Mean: 109 Progress Note : Time: 23:55 Progress Note Patient seen and evaluated by me. Evaluation today includes history and physical exam with CBC, CMP, COVID and flu test, urinalysis, single view chest x-ray and CT scan of the abdomen and pelvis renal stone protocol. Pertinent physical exam findings well-developed well-nourished female in mild distress due to fever and malaise. HEENT exam is completely unremarkable, no anterior cervical lymphadenopathy, moist mucous membranes. Heart is regular, lungs are clear, no rales, rhonchi or wheezes. Abdomen is soft, mild tenderness in the left lower quadrant/left pelvis. Bowel sounds are present. She has no rashes. No meningeal signs. Mentating appropriately. Differential diagnosis includes COVID/flu, pyelonephritis, mastitis, pneumonia, kidney stone. Labs, imaging independently reviewed and interpreted by me. Her CBC is normal, her comprehensive metabolic panel is normal. COVID and flu remain negative. Urinalysis shows no signs of infection, she does have trace hematuria. Single view chest x-ray shows no evidence of consolidation or effusion. She does appear to have a little prominence in the right perihilar region on her chest x- ray. After discussion with the patient regarding ongoing left flank pain and noting of the hematuria CT scan renal stone protocol was ordered. This demonstrated no sign of kidney stone however did show consolidation in the right lower lung. Patient received a liter of lactated Ringer's and 1 g of Rocephin. Will send her home on cefdinir for 10 days for her pneumonia. Advised follow-up with her primary care physician. CT abdomen and pelvis read per stat rad c onfirms the right lung base consolidation but also demonstrates 3 cm left ovarian cyst which is likely the cause of her left flank pain. I advised her to follow-up with Dr. PORTER her [employer]. She verbalized understanding of the discharge instructions. Return precautions provided in both verbal and written format. All questions are sought and answered. Diagnostic Imaging Diagonstic Imaging: Xray Plain Films/CT/US/NM/MRI: chest Comments Single view chest x-ray independently reviewed and interpreted by cassie infiltrates, prominence of the right hilum Diagonstic Imaging: CT Comments CT abdomen and pelvis renal stone protocol, independently reviewed and interpreted by me. Right lung basilar consolidation; no kidney stone Departure Impression Primary Impression: Pneumonia Qualified Codes: J18.9 - Pneumonia, unspecified organism Disposition: HOME, SELF-CARE Condition: Improved Departure-Patient Inst. Decision time for Depature: 23:01 Referrals: MARSHALL WISEMAN APRN (PCP/Family) Primary Care Physician Add. Discharge Instructions: Continue to alternate extra strength Tylenol, 1000 mg with [id number] ibuprofen 600 mg (3 tablets) every 3-4 hours for any fever over 100.4. Take the antibiotics, cefdinir 300mg starting tomorrow evening 300 mg twice a day for 10 days. You can also use [id number] Robitussin for cough as needed. Drink plenty of fluids, water, Gatorade, Pedialyte to stay well-hydrated. Please call and follow-up with your primary care physician if you are not getting any better by Sunday. If you have any new, concerning or emergent symptoms please return to the emergency department. Scripts Cefdinir (Cefdinir) 300 Mg Capsule 300 MG PO BID for 10 Days, #20 CAP Prov: RANDA KAUR MD 02/18/23 RANDA KAUR MD Feb 18, 2023 21:58
[2023-02-18 22:20] LABS: BASOPHILS % (AUTO) 0 % (0-10); EOSINOPHILS % (AUTO) 0 % (0-10); HEMATOCRIT 35 % (35-52); LYMPHOCYTES # (AUTO) 1.5 10^3/uL (1.0-4.0); LYMPHOCYTES % (AUTO) 21 % (12-44); MEAN CORPUSCULAR HEMOGLOBIN 25 pg (25-34); MEAN CORPUSCULAR HGB CONC 31 g/dL (32-36); MEAN CORPUSCULAR VOLUME 79 fL (80-99); MEAN PLATELET VOLUME 9.3 fL (9.0-12.2); MONOCYTES % (AUTO) 14 % (0-12); NEUTROPHILS # (AUTO) 4.6 10^3/uL (1.8-7.8); NEUTROPHILS % (AUTO) 64 % (42-75); PLATELET COUNT 242 10^3/uL (130-400); WHITE BLOOD COUNT 7.2 10^3/uL (4.3-11.0)
[2023-02-18 22:30] LABS: ALBUMIN 3.9 GM/DL (3.2-4.5); POTASSIUM 3.7 MMOL/L (3.6-5.0)
[2023-02-18 22:31] LABS: CALCIUM 8.9 MG/DL (8.5-10.1)
[2023-02-18 22:32] LABS: TOTAL PROTEIN 6.9 GM/DL (6.4-8.2)
[2023-02-18 22:34] LABS: BILIRUBIN,TOTAL 0.4 MG/DL (0.1-1.0)
[2023-02-18 22:36] LABS: CREATININE SERUM 0.73 MG/DL (0.60-1.30)
[2023-02-18 22:38] LABS: BACTERIA,URINE TRACE /HPF; BILIRUBIN,URINE NEGATIVE (NEGATIVE); CLARITY,URINE CLEAR; COLOR,URINE YELLOW; GLUCOSE, URINE (UA) NEGATIVE (NEGATIVE); KETONES,URINE NEGATIVE (NEGATIVE); LEUKOCYTE ESTERASE ,URINE NEGATIVE (NEGATIVE); NITRITE,URINE NEGATIVE (NEGATIVE); PROTEIN,URINE NEGATIVE (NEGATIVE); RBC,URINE RARE /HPF
[2023-02-18] MEDS ORDERED: LACTATED RINGERS 1,000 ML 1,000 ML IV SCH (23:00)
[2023-02-18] MEDS ORDERED: AZITHROMYCIN 250 MG TABLET PO ONE (23:15)
[2023-02-18] MEDS ORDERED: CEFD300C3 PO (23:54)
[2023-02-19] MEDS ORDERED: cefTRIAXone IV/IM 1,000 MG in NS (IVPB) 50 ML 50 ML IV ONE ×2
[2023-02-19 00:25] VITALS: BP 111/62
--- NOTE | 2023-02-19 06:55 | Diagnostic Imaging Report ---
INDICATION: Left flank pain and fever. Single AP view of the chest is obtained. There is no previous study for comparison. Heart size and pulmonary vascularity are within normal limits. There is mild increased density in the right hilum. There is no lobar consolidation or significant pleural fluid. IMPRESSION: Focally increased right hilar density may represent area of infiltrate such as pneumonia. Clinical correlation and follow-up chest radiograph with PA and lateral projections would be useful. Dictated by: Dictated on workstation # [id number]
--- NOTE | 2023-02-19 07:09 | Diagnostic Imaging Report ---
PROCEDURE: CT urinary tract, rule out kidney stone. TECHNIQUE: Multiple contiguous axial images were obtained through the abdomen and pelvis without the use of intravenous contrast. Auto Exposure Controls were utilized during the CT exam to meet ALARA standards for radiation dose reduction. INDICATION: Left flank pain with microhematuria and fever. FINDINGS: There is dense consolidation in the medial basilar segment of the right lower lobe. This is incompletely evaluated and possibility of central obstructing lesion is not excluded. Unenhanced images of liver, gallbladder, pancreas, adrenal glands and spleen are unremarkable. Unenhanced kidneys are unremarkable. The appendix has a normal appearance. There is no evidence of free fluid. There is an approximately 3 cm cyst in the left ovary. There is edema in the anterior pelvic wall which may be postoperative in nature. IMPRESSION: 1. Infiltrate in the medial right lung base may represent pneumonia and follow-up study would be useful to document resolution. 2. Nonspecific 3 cm cyst in the left ovary. 3. Otherwise, no acute abnormality is seen. Dictated by: Dictated on workstation # [id number]
== END 2023-02-19 00:25 | disposition home or self-care (01) ==
LOC: EDUNIT# 21:30 → ER 21:32
DX: J18.9 Pneumonia, unspecified organism (principal); E66.9 Obesity, unspecified; Z68.38 Body mass index [BMI] 38.0-38.9, adult
CPT/HCPCS: 36415; 71045; 74176; 80053; 81000; 85025; 87636